=== PATIENT | male | born 1965 | race Caucasian/White ===

== ENCOUNTER 2018-02-05 18:32 | Emergency (ER) | payer OTHER ==
[~2018-02-05] VITALS: Ht 172.7 cm; Wt 80.2 kg
[~2018-02-05 18:32] MED LIST: AUGMENTIN875 MG PO; MOTRIN600 MG PO
[2018-02-05 19:29] LABS: BASOPHIL (%) 0.7 % (0-1); EOSINOPHIL (%) 0.2 % (0-5); HEMATOCRIT 44.2 % (38.0-50.0); HEMOGLOBIN 15.9 G/DL (12.5-16.6); LYMPHOCYTE (%) 48.8 % (15-42); LYMPHOCYTE COUNT 2.2 K/uL (1.0-2.8); MCH 32.9 PG (29.0-34.0); MCV 91.5 FL (86-99); MONOCYTE (%) 15.8 % (3-12); MONOCYTE COUNT 0.7 K/uL (0-0.8); NEUTROPHIL (%) 34.5 % (45-76); NEUTROPHIL COUNT 1.6 K/uL (1.8-6.4); PLATELET COUNT 85 K/uL (156-360); RBC DIS.WIDTH-CV 11.2 % (11.8-14.6); RBC DIS.WIDTH-SD 37.9 % (39-53); RED BLOOD COUNT 4.83 M/uL (4.00-5.50); WHITE BLOOD COUNT 4.6 K/uL (4.1-10.2)
[2018-02-05 19:40] LABS: PTT 29.4 SEC (25-37)
[2018-02-05 19:44] LABS: ALBUMIN 4.6 g/dL (3.2-4.8); CHLORIDE 104 mEq/L (99-109); POTASSIUM 4.1 mEq/L (3.7-5.4); SODIUM 142 mEq/L (136-147)
[2018-02-05 19:45] LABS: MAGNESIUM 2.7 mg/dL (1.3-2.7)
[2018-02-05 19:47] LABS: GLUCOSE 101 mg/dL (70-99); TOTAL PROTEIN 8.9 g/dL (6.4-8.3)
[2018-02-05 19:48] LABS: TOTAL BILIRUBIN 0.8 mg/dL (0.0-1.0)
[2018-02-05 19:49] LABS: SERUM ETHYL ALCOHOL 414 mg/dL
[2018-02-05 19:50] LABS: CREATININE 0.9 mg/dL (0.6-1.3); GFR ESTIMATE (CALCULATED) > 59 mL/min/ (58.99-99999)
[2018-02-05 19:51] LABS: ALKALINE PHOSPHATASE 68 IU/L (3-129)
[2018-02-05 19:52] LABS: AST (GOT) 99 IU/L (2-34); UREA NITROGEN (BUN) 14 mg/dL (9-23)
[2018-02-05 19:54] LABS: ACETAMINOPHEN (TYLENOL) < 10 mcg/mL (10-30); ALT (GPT) 46 IU/L (3-49); SALICYLATE < 5.0 MG/DL (15-30)
[2018-02-06 03:52] LABS: APPEARANCE CLEAR ((CLEAR)); BILIRUBIN NEGATIVE; BLOOD NEGATIVE; COLOR YELLOW ((YELLOW)); GLUCOSE (STRIP) NEGATIVE; KETONES NEGATIVE; LEUKOCYTES NEGATIVE; NITRITE NEGATIVE; PROTEIN (STRIP) 30; SPECIFIC GRAVITY 1.013 (1.000-1.030); UCUL ADDED? NO; UROBILINOGEN 0.2 MG/DL (0.2-1.0)
[2018-02-06 04:00] LABS: AMPHETAMINE NEGATIVE (500 ng/mL); BARBITURATES NEGATIVE (200 ng/mL); BENZODIAZEPINES PRESUMPTIVE POSITIVE (150 ng/mL); BUPRENORPHINE NEGATIVE (10 ng/mL); COCAINE NEGATIVE (150 ng/mL); METHADONE NEGATIVE (200 ng/mL); METHAMPHETAMINE NEGATIVE (500 ng/mL); OPIATES (MORPHINE) NEGATIVE (100 ng/mL); OXYCODONE NEGATIVE (100 ng/mL); PHENCYCLIDINE NEGATIVE (25 ng/mL); PROPOXYPHENE NEGATIVE (300 ng/mL); THC CANNABINOIDS NEGATIVE (50 ng/mL); TRICYCLIC ANTIDEPRESSANTS NEGATIVE (300 ng/mL)
[2018-02-06 04:46] LABS: BENZODIAZEPINES, URINE SCREEN Negative (200 ng/mL)
[2018-02-06 11:47] VITALS: BP 138/88
== END 2018-02-06 11:49 | disposition home or self-care (01) ==
LOC: EME 18:32
PROVIDERS: Emergency Medicine
DX: F10.129 Alcohol abuse with intoxication, unspecified (principal); F32.9 Major depressive disorder, single episode, unspecified; M54.5 Low back pain; M79.604 Pain in right leg; R45.851 Suicidal ideations; R06.2 Wheezing; Y90.8 Blood alcohol level of 240 mg/100 ml or more; F17.200 Nicotine dependence, unspecified, uncomplicated
CPT/HCPCS: 80053; 81003; 83735; 83930; 84999; 85025; 85610; 85730; 90839; 93005; 94640; 99281; 99285; G0480; J1630; J2060; J7040